=== PATIENT | male | born 1985 | race Caucasian/White ===

== ENCOUNTER 2021-11-30 10:30 | Emergency (ER) | payer OTHER, SELFPAY ==
--- NOTE | ~2021-11-30 | US_ITS ---
EXAMINATION: ULTRASOUND EXTREMITY NONVASCULAR CLINICAL INFORMATION: Left antecubital brachial swelling. History of injections in this region. COMPARISON: None TECHNIQUE: Multiple 2-D grayscale and color Doppler ultrasound images were obtained in the antecubital fossa. FINDINGS: Moderate subcutaneous edema is seen. A more focal area anechoic/hypoechoic focus in this region measures approximately 3.3 x 1.6 x 3.0 cm. Color Doppler showed mild associated vascular flow. US/US extremity nonvascular IMPRESSION: Moderate subcutaneous edema with more focal area measuring up to 3.3 cm as detailed above. A developing abscess in this region cannot be excluded. * If these findings persist or enlarge, short-term repeat targeted soft tissue ultrasound can be performed as clinically indicated to assess for change.
[2021-11-30 11:05] VITALS: BP 118/88; PULSE 97; RESP 18; TEMP 37; O2SAT 96; BMI 39.2
[2021-11-30 14:00] VITALS: BP 138/79; PULSE 82; RESP 18; TEMP 36.8; O2SAT 99
--- NOTE | 2021-11-30 14:09 | ED_ITS ---
HPI - Skin/Abscess/Foreign Bdy General Chief complaint: Skin/Abscess/Foreign Body Stated complaint: abscess l arm Time Seen by Provider: 11/30/21 11:01 Source: patient Mode of arrival: ambulatory Limitations: no limitations History of Present Illness HPI narrative: 36-year-old male with a past medical history of substance abuse with IV heroin presents to the emergency department with pain/redness/swelling to left mid arm for approximately 3 days after he injected IV heroin. Reports he does not believe the need with stuck there. Patient states that he used heroin and in the past 3 days has developed abscess in left arm from needle not being properly placed and he is nervous that he has an abscess at this time. Patient endorses pain, swelling, redness on left inner arm. Patient reports he also has a hea ling wound on the right inner arm from heroin injection. He states that he is not interested in detox at this time. Patient denies and fever, headache, chills, vision changes, lightheadedness, dizziness, chest pain, wheezing, shortness of breath, cough, nausea, vomiting, abdominal pain, history of MRSA or any sick symptoms. MD complaint: abscess/boil Onset (ago): day(s) Location: LUE Severity: mild Severity scale (1-10): 1 Quality: aching Pain Consistency: constant Relieving factors: none Exacerbating factors: palpation and movement Context: IVDA Associated symptoms: denies other symptoms Treatments prior to arrival: none Related Data Previous Rx's Medication Instructions Recorded cephalexin 500 mg capsule 500 mg PO Q6H 10 days #40 caps 11/30/21 doxycycline hyclate 100 mg tablet 100 mg PO BID 10 days #20 tabs 11/30/21 Allergies Allergy/AdvReac Type Severity Reaction Status Date / Time clonidine [CLONIDINE] Allergy Unknown UNKNOWN Unverified 12/29/19 15:46 Review of Systems Review of Systems: Constitutional : No Weight loss, No Fever, No Chills, No Night Sweats, No Fatigue, No Malaise ENT/Mouth : No Hearing loss, No Ear Pain, No Nasal Congestion, No Sinus Pain, No Hoarseness, No sore throat Eyes: No Eye Pain, No Swelling, No Redness, No Foreign Body, No Discharge, No Vision Changes Cardiovascular : No Chest Pain, No SOB, No Dyspnea on Exertion, No Orthopnea, No Edema, No Palpitations Respiratory : No Cough, No Sputum, No Wheezing, No Smoke Exposure, No Dyspnea Gastrointestinal : No Nausea, No Vomiting, No Diarrhea, No Constipation, No abdominal Pain, No Hematochezia, No Melena Genitourinary :No Dysuria, No Urinary Frequency, No Hematuria, No Urinary Incontinence, No Urgency, No Flank Pain, No Urinary Flow Changes Musculoskeletal : No joint pain, No Myalgias, No Joint Swelling Skin : + Skin pain/redness/swelling, No skin Lesions, No rash Neuro : No Weakness, No Numbness, No Paresthesias, No Loss of Consciousness, No Dizziness, No Headache Yes all other systems are reviewed and are negative [facility] Past Medical History Attestation statement: The following information was validated with the patient. Source: old records reviewed and nursing notes reviewed Social History Social History Alcohol intake: never Patient Tobacco Use Status: Current everyday Tobacco user Use of substances other than those prescribed or required for medical reasons: Yes Substance Use Type: Heroin Substance Use Frequency: Daily Last Used Substance: Days (ago) Any prior treatment program specific to substance use: Yes Advance Directives: No Advance Directives Information Provided: Yes Physical Exam Vital Signs: Vital Signs: Last Vital Signs Temp 98.3 F 11/30/21 14:00 Pulse 82 11/30/21 14:00 Resp 18 11/30/21 14:00 BP 138/79 11/30/21 14:00 Pulse Ox 99 11/30/21 14:00 O2 Del Method 11/30/21 14:00 BMI result Body Mass Index 39.2 Vital signs have been reviewed as normal and appeared to be correct. Blood pressure normal. Heart rate normal. Respiration rate normal. Temperature normal. Oxygen saturation normal. Appearance: Alert. Oriented X3. No acute distress. Head: Normal external exam. Normocephalic. Atraumatic. Eyes: PERRLA. EOMI. Conjunctiva and sclera normal. Eyelids normal. ENT: Pharynx normal. Uvula midline. Moist mucous membranes. No lesions/ulcerations or masses noted on the tongue. Normal voice. No trismus noted. No drooling noted. No muffled voice noted. Neck: Normal inspection. Neck supple. FROM. No adenopathy. Thyroid Normal. No meningeal signs. CVS: Normal heart rate and rhythm. Heart sound normal. Pulses normal throughout. No murmurs/rales/gallops. Respiratory: No respiratory distress. Painless inspiration. Breath sounds normal. No wheezes/rales/rhonchi noted. Chest nontender. No accessory muscle usage noted or decreased air movement noted. Abdomen: Soft and nontender. No distention noted. No organomegaly noted. No visible injury noted. Back: Full range of motion noted. Skin: Skin warm and dry. Normal skin color. Normal skin turgor. To left AC joint/forearm patient has erythema/tenderness to palpation and warm to touch consistent with cellulitis infection along with induration no obvious fluctuance or foreign bodies noted. No drainage noted. Otherwise no additional le sions/rashes/lacerations noted. Extremities: No extremity edema noted. No calf tenderness is noted. Extremities exhibit normal range of motion and nontender. Neuro: Oriented X 3. No motor deficit. No sensory deficit. Reflexes normal. Normal steady gait. No focal neuro deficits noted. CN's II-XII intact bilaterally? Vascular: + radial pulses/+ 2 distal pedal pulses/+2 dorsalis pedis b/l. Normal cap refill. No cyanosis noted to upper extremity nails and lower extremity toes nails. Course Course Course Narrative: 14pm - 36-year-old male with a past medical history of substance abuse with IV heroin presents to the emergency department with pain/redness/swelling to left mid arm for approximately 3 days after he injected IV heroin. Reports he does not believe the need with stuck there. Patient states that he used heroin and in the past 3 days has developed abscess in left arm from needle not being properly placed and he is nervous that he has an abscess at this time. Patient endorses pain, swelling, redness on left inner arm. He states that he is not interested in detox at this time. Plan: Labs, blood cultures, lactic acid provide a L of IV fluids and an ultrasound to rule out abscess and re-evaluate. Reevaluation(s) Reevaluation #1: - labs return patient's ESR 33. - ultrasound revealed moderate subcutaneous edema with more focal area measuring up to 3.3 cm a developing abscess in this region cannot be exclude with mild associated vascular flow. - therefore at this time will DC home with antibiotics for cellulitis and instructions to perform warm compresses and to return in 2-3 days if symptoms worsen and to follow up with PCP. Patient understands agrees this plan. Time: 16:34 MDM - Skin/Abscess/Foreign Bdy Medical Records Attestation: I reviewed the patient's medical records. Lab Data Attestation: I reviewed the patient's lab results. Result diagrams: 11/30/21 14:20 11/30/21 14:20 Labs: Lab Results 11/30/21 11/30/21 11/30/21 Range/Units 14:20 14:20 14:20 WBC 6.3 (4.8-10.8) X10*3/uL RBC 4.62 (4.60-5.80) X10*6/uL Hgb 14.0 (14.0-18.0) g/dl Hct 40.1 L (42.0-52.0) % MCV 86.8 (80.0-98.0) fL MCH 30.3 (27.0-33.0) pg MCHC 34.9 (31.0-36.0) g/dl RDW 13.0 (11.0-16.0) % Plt Count TNP MPV 11.0 (9.4-12.4) fL Immature Gran % (Auto) 0.3 (0.0-0.4) % Neut % (Auto) 62.4 (45-73) % Lymph % (Auto) 27.6 (20-40) % Mobile % (Auto) 8.4 (2-11) % Eos % (Auto) 1.0 (0-4) % Baso % (Auto) 0.3 (0-2) % Lymph # (Auto) 1.7 (1.2-4.9) X10*3/uL Mobile # (Auto) 0.5 (0.1-1.2) X10*3/uL Eos # (Auto) 0.1 (0.0-0.4) X10*3/uL Baso # (Auto) 0.0 (0.0-0.2) X10*3/uL Abs Immat Gran (auto) 0.02 (0.00-0.03) X10*3/uL Absolute Neuts (auto) 3.9 (2.0-8.3) x10*3/uL Absolute Nucleated RBC 0.000 (0.0-0.012) X10*3/uL Nucleated RBC % (auto) 0.0 (0.0-0.2) /100WBC ESR 33 H (0-15) MM/HR PT 12.2 (10.0-13.1) SEC INR 1.1 (0.9-1.1) Lactic Acid (0.5-2.0) mmol/L 11/30/ Range/Units 14:20 WBC (4.8-10.8) X10*3/uL RBC (4.60-5.80) X10*6/uL Hgb (14.0-18.0) g/dl Hct (42.0-52.0) % MCV (80.0-98.0) fL MCH (27.0-33.0) pg MCHC (31.0-36.0) g/dl RDW (11.0-16.0) % Plt Count MPV (9.4-12.4) fL Immature Gran % (Auto) (0.0-0.4) % Neut % (Auto) (45-73) % Lymph % (Auto) (20-40) % Mobile % (Auto) (2-11) % Eos % (Auto) (0-4) % Baso % (Auto) (0-2) % Lymph # (Auto) (1.2-4.9) X10*3/uL Mobile # (Auto) (0.1-1.2) X10*3/uL Eos # (Auto) (0.0-0.4) X10*3/uL Baso # (Auto) (0.0-0.2) X10*3/uL Abs Immat Gran (auto) (0.00-0.03) X10*3/uL Absolute Neuts (auto) (2.0-8.3) x10*3/uL Absolute Nucleated RBC (0.0-0.012) X10*3/uL Nucleated RBC % (auto) (0.0-0.2) /100WBC ESR (0-15) MM/HR PT (10.0-13.1) SEC INR (0.9-1.1) Lactic Acid 1.2 (0.5-2.0) mmol/L Imaging Data Extremity ultrasound of left AC/forearm: Attestation: I personally reviewed and interpreted this imaging study as follows: Radiologist's impression: FINDINGS: Moderate subcutaneous edema is seen. A more focal area anechoic/hypoechoic focus in this region measures approximately 3.3 x 1.6 x 3.0 cm. Color Doppler showed mild associated vascular flow. US/US extremity nonvascular IMPRESSION: Moderate subcutaneous edema with more focal area measuring up to 3.3 cm as detailed above. A developing abscess in this region cannot be excluded. ? * If these findings persist or enlarge, short-term repeat targeted soft tissue ultrasound can be performed as clinically indicated to assess for change.? Discharge Plan Discharge Clinical Impression: Cellulitis Patient Disposition: Home, Self-Care Additional Instructions: You should apply warm compresses for 15-30 minutes every 4-6 hours. If he devel ops any fevers any worsening swelling or redness he needs to return immediately or if he see the redness following a vein. You should return in 2-3 days for check of your cellulitis if it is worsening if it is improving then you do not need to return. Please take the antibiotics as prescribed. Prescriptions: New cephalexin 500 mg capsule 500 mg PO Q6H 10 Days Qty: 40 0RF doxycycline hyclate 100 mg tablet 100 mg PO BID 10 Days Qty: 20 0RF Referrals: Mark Capellan MD [Primary Care Provider] - 2 days
[2021-11-30 14:28] LABS: Hematocrit 40.1 % (42.0-52.0); MANUAL DIFF FLAG NO; Mean Corpuscular HGB Conc 34.9 g/dl (31.0-36.0); PLT CLUMP 1; SCAN SMEAR FLAG 1
[2021-11-30 14:30] LABS: Basophils Percent Auto 0.3 % (0-2); Eosinophils Absolute Auto 0.1 X10*3/uL (0.0-0.4); Imm Gran Abs Auto 0.02 X10*3/uL (0.00-0.03); Imm Gran Pct Auto 0.3 % (0.0-0.4); Lymphocytes Absolute Auto 1.7 X10*3/uL (1.2-4.9); Lymphocytes Percent Auto 27.6 % (20-40); Mean Corpuscular Hemoglobin 30.3 pg (27.0-33.0); Mean Corpuscular Volume 86.8 fL (80.0-98.0); Monocytes Absolute Auto 0.5 X10*3/uL (0.1-1.2); Monocytes Percent Auto 8.4 % (2-11); Neutrophils Absolute Auto 3.9 x10*3/uL (2.0-8.3); Neutrophils Percent Auto 62.4 % (45-73); Red Blood Count 4.62 X10*6/uL (4.60-5.80)
[2021-11-30 14:37] LABS: Lactic Acid 1.2 mmol/L (0.5-2.0)
[2021-11-30 14:38] LABS: INTERNATIONAL NORM RATIO 1.1 (0.9-1.1); Prothrombin Time 12.2 SEC (10.0-13.1)
[2021-11-30] MEDS: 0.9 % Sodium Chloride 1,000 ML 999 ML IVCONT (14:41)
[2021-11-30 14:47] LABS: White Blood Count 6.3 X10*3/uL (4.8-10.8)
[2021-11-30 15:08] LABS: Erythrocyte Sedimentation Rate 33 MM/HR (0-15)
[2021-11-30] MEDS: cephALEXin 500 MG CAPSULE PO (17:01)
== END 2021-11-30 17:12 | disposition home or self-care (01) ==
PROVIDERS: Physician Assistant Medical; Emergency Provider Emergency Medicine; PCP Internal Medicine
DX: L03.114 Cellulitis of left upper limb (principal); M79.602 Pain in left arm; F19.10 Other psychoactive substance abuse, uncomplicated; F17.200 Nicotine dependence, unspecified, uncomplicated
CPT/HCPCS: 36415; 76882; 83605; 85025; 85610; 85652; 87040; 96360; 99284